=== PATIENT | male | born 1990 | race Caucasian/White ===

== ENCOUNTER 2023-11-16 08:27 | Day surgery (SDC) | payer BC ==
[2023-11-08 13:32] VITALS: BMI 31.6
[2023-11-16 10:11] VITALS: RESP 18; TEMP 97
[2023-11-16 10:13] VITALS: BP 121/81; PULSE 75
== END 2023-11-16 10:13 | disposition home or self-care (01) ==
LOC: FASU-ENDO 08:27
PROVIDERS: ATTEND Internal Medicine Gastroenterology
PROC: 0DB68ZX Excision of Stomach, Via Natural or Artificial Opening Endoscopic, Diagnostic (ICD-10-PCS; 2023-11-16)
PROC: 0DB98ZX Excision of Duodenum, Via Natural or Artificial Opening Endoscopic, Diagnostic (ICD-10-PCS; principal; 2023-11-16 09:24)
DX: K29.50 Unspecified chronic gastritis without bleeding (principal); R10.13 Epigastric pain
CPT/HCPCS: 88305-TC; 88342-TC